=== PATIENT | female | born 1950 | race Caucasian/White ===

== ENCOUNTER → 2020-07-25 10:13 | Outpatient (CLI) | payer MEDICARE, SELFPAY ==
--- NOTE | ~2020-07-25 | XR_ITS ---
XR hip BI wo pelvis DATE: 07/25/2020 10:31 INDICATION: Bilateral hip pain TECHNIQUE: AP and lateral views of each hip COMPARISON: None FINDINGS: Bilateral hip joint space narrowing and spurring consistent with moderately severe bilatera l hip osteoarthritis. No fracture or dislocation, avascular necrosis or bone destruction is evident. The pubic symphysis and sacroiliac joints are intact. IMPRESSION: Moderately severe bilateral hip osteoarthritis Reviewed, dictated and finalized at location B.
== END ==
PROVIDERS: PCP Family Medicine; Visit Provider Family Medicine
DX: M25.552 Pain in left hip (principal); M25.551 Pain in right hip; M16.0 Bilateral primary osteoarthritis of hip
CPT/HCPCS: 73521

== ENCOUNTER 2020-08-16 12:18 | Outpatient (CLI) | payer MEDICARE, SELFPAY ==
--- NOTE | ~2020-08-16 | CT_ITS ---
EXAMINATION: CT abdomen pelvis w con DATE: 08/16/2020 12:47 INDICATION: Left lower quadrant abdominal pain. Diverticulosis. TECHNIQUE: Computed tomography (CT) of the abdomen and pelvis was performed with 100 mL Omnipaque 350 intravenous contrast. Automated exposure control and iterative reconstruction technique were employe d. The dose-length product was 830.19 mGy-cm. COMPARISON: None. FINDINGS: The visualized portions of the lung bases demonstrate mild atelectasis in the left. No pleu ral effusion. The heart size is normal. No pericardial effusion. There is a small sliding hiatal andrei ia. There are cysts in the liver measuring up to 1.2 cm. The gallbladder, spleen, pancreas, adrenal g lands, and left kidney are normal. There is a 5 mm cyst in right kidney. There are scattered divertic kathleen in the colon. There is mild fat stranding adjacent to a sigmoid diverticulum, consistent with div erticulitis. The appendix is normal. There are no dilated loops of bowel. There are no pathologically enlarged lymph nodes. There is no free intraperitoneal fluid. There is a right inguinal hernia conta ining fat. There is severe osteoarthritis of the hips. There is moderate lumbar spondylosis. IMPRESSION: 1. Mild sigmoid diverticulitis. No perforation or abscess. Reviewed, dictated and finalized at location A.
[2020-08-16 12:42] LABS: Estimated Glomerular Filt Rate > 60
== END 2020-08-16 12:19 | disposition home or self-care (01) ==
PROVIDERS: PCP Family Medicine; Visit Provider Physician Assistant
DX: R10.32 Left lower quadrant pain (principal); K57.32 Diverticulitis of large intestine without perforation or abscess without bleeding
CPT/HCPCS: 74177; Q9967

== ENCOUNTER 2021-05-25 10:53 | Outpatient (CLI) | payer MEDICARE, SELFPAY ==
--- NOTE | 2021-05-25 | ECG_ITS ---
Measurements Intervals [place] Rate: 83 P: 0 [place]: 188 QRS: -32 QRSD: 88 T: 32 QT: 376 QTc: 443 Interpretive Statements SINUS RHYTHM LEFT AXIS DEVIATION CANNOT RULE OUT SEPTAL INFARCT, AGE INDETERMINATE ABNORMAL ECG Electronically Signed On 05-25-2021 11:37:16 CDT by Ozzy Bledsoe D.O.
[2021-05-25 11:33] LABS: Hematocrit 41.2 % (37.0-47.0); Hemoglobin 13.4 g/dL (12.0-15.0)
[2021-05-25 11:44] LABS: Estimated Glomerular Filt Rate > 60; Glucose 129 mg/dL (65-110)
[2021-05-25 11:51] LABS: Urine Cotinine NEGATIVE
== END 2021-05-25 10:54 | disposition home or self-care (01) ==
LOC: ANHLAB 10:55
PROVIDERS: PCP Family Medicine; Visit Provider Orthopaedic Surgery
DX: Z01.818 Encounter for other preprocedural examination (principal); E78.00 Pure hypercholesterolemia, unspecified; I10 Essential (primary) hypertension; I25.5 Ischemic cardiomyopathy; Z51.81 Encounter for therapeutic drug level monitoring; Z79.899 Other long term (current) drug therapy
CPT/HCPCS: 80307; 82040; 82565; 82947; 85014; 85018; 93005

== ENCOUNTER 2021-06-11 11:34 | Outpatient (CLI) | payer MEDICARE, SELFPAY ==
[2021-06-11 13:27] LABS: Basophils Percent Auto 0.4 % (0.2-1.2); Eosinophils Absolute Auto 0.2 K/mm3 (0-0.3); Eosinophils Percent Auto 1.9 % (0-4.4); Hematocrit 44.5 % (37.0-47.0); Hemoglobin 14.8 g/dL (12.0-15.0); Immature Granulocyte Absolute 0.04 K/mm3 (0.00-0.031); Immature Granulocyte Percent A 0.4 % (0-0.5); Lymphocytes Absolute Auto 2.53 K/mm3 (0.9-3.2); Lymphocytes Percent Auto 27.3 % (18.3-44.2); Mean Corpuscular HGB Conc 33.3 g/dl (32-36); Mean Corpuscular Hemoglobin 29.4 pg (26-34); Mean Corpuscular Volume 88.3 fl (80-100); Mean Platelet Volume 10.5 fl (7.4-10.4); Monocytes Absolute Auto 0.6 K/mm3 (0.1-0.6); Monocytes Percent Auto 6.4 % (2.6-8.5); Neutrophils Absolute Auto 5.9 K/mm3 (1.3-6.7); Neutrophils Percent Auto 63.6 % (45.5-73.1); Platelet Count Result 351 k/mm3 (150-375); Red Blood Count 5.04 M/mm3 (4.2-5.4); Red Cell Distribution Width 13.6 % (11.5-14.5); White Blood Count 9.3 K/mm3 (4.5-10.0)
[2021-06-11 13:42] LABS: Anion Gap 6 mmol/L (8-16); Blood Urea Nitrogen 17 mg/dL (7-17); Calcium 9.9 mg/dL (8.4-10.2); Carbon Dioxide 30 mmol/L (22-30); Chloride 100 mmol/L (98-107); Estimated Glomerular Filt Rate > 60; Glucose 123 mg/dL (65-110); Sodium 136 mmol/L (137-145)
[2021-06-11 18:03] LABS: Hemoglobin A1C 6.6 % (<5.7)
== END 2021-06-11 11:35 | disposition home or self-care (01) ==
PROVIDERS: Anesthesiology; PCP Family Medicine; Visit Provider Orthopaedic Surgery
DX: Z01.818 Encounter for other preprocedural examination (principal); M16.12 Unilateral primary osteoarthritis, left hip; I10 Essential (primary) hypertension
CPT/HCPCS: 36415; 80048; 83036; 85025; 87081

== ENCOUNTER 2021-06-18 13:21 | Outpatient (CLI) | payer MEDICARE, SELFPAY | END 2021-06-18 13:22 | disposition home or self-care (01) | LOC: ANHSURGERY 13:23 | PROVIDERS: PCP Family Medicine; Visit Provider Orthopaedic Surgery | DX: M16.12 Unilateral primary osteoarthritis, left hip (principal); Z01.818 Encounter for other preprocedural examination | CPT/HCPCS: 36415; 86850; 86900; 86901 ==

== ENCOUNTER 2021-09-17 09:37 | Outpatient (CLI) | payer MEDICARE, SELFPAY ==
[2021-09-17 10:10] LABS: Basophils Percent Auto 0.5 % (0.2-1.2); Eosinophils Absolute Auto 0.3 K/mm3 (0-0.3); Eosinophils Percent Auto 2.9 % (0-4.4); Hematocrit 40.9 % (37.0-47.0); Hemoglobin 13.7 g/dL (12.0-15.0); Immature Granulocyte Absolute 0.04 K/mm3 (0.00-0.031); Immature Granulocyte Percent A 0.5 % (0-0.5); Lymphocytes Absolute Auto 2.12 K/mm3 (0.9-3.2); Lymphocytes Percent Auto 24.3 % (18.3-44.2); Mean Corpuscular HGB Conc 33.5 g/dl (32-36); Mean Corpuscular Hemoglobin 30.2 pg (26-34); Mean Corpuscular Volume 90.3 fl (80-100); Mean Platelet Volume 10.8 fl (7.4-10.4); Monocytes Absolute Auto 0.7 K/mm3 (0.1-0.6); Monocytes Percent Auto 8.2 % (2.6-8.5); Neutrophils Absolute Auto 5.6 K/mm3 (1.3-6.7); Neutrophils Percent Auto 63.6 % (45.5-73.1); Platelet Count Result 322 k/mm3 (150-375); Red Blood Count 4.53 M/mm3 (4.2-5.4); White Blood Count 8.7 K/mm3 (4.5-10.0)
[2021-09-17 10:13] LABS: Albumin Level 4.4 g/dL (3.5-5.1)
[2021-09-17 10:16] LABS: Anion Gap 6 mmol/L (8-16); Blood Urea Nitrogen 21 mg/dL (7-17); Calcium 9.3 mg/dL (8.4-10.2); Carbon Dioxide 31 mmol/L (22-30); Chloride 98 mmol/L (98-107); Estimated Glomerular Filt Rate > 60; Glucose 148 mg/dL (65-110); Sodium 135 mmol/L (137-145)
[2021-09-17 10:23] LABS: Urine Cotinine NEGATIVE
[2021-09-17 10:56] LABS: Hemoglobin A1C 6.3 % (<5.7)
== END 2021-09-17 09:38 | disposition home or self-care (01) ==
LOC: ANHSURGERY 09:42
PROVIDERS: Anesthesiology; PCP Family Medicine; Visit Provider Orthopaedic Surgery
DX: Z01.812 Encounter for preprocedural laboratory examination (principal); M16.12 Unilateral primary osteoarthritis, left hip; Z51.81 Encounter for therapeutic drug level monitoring; Z79.899 Other long term (current) drug therapy
CPT/HCPCS: 36415; 80048; 80307; 82040; 83036; 85025; 86850; 86900; 86901; 87081

== ENCOUNTER 2021-09-25 00:08 | Day surgery (SDC) | payer MEDICARE, SELFPAY ==
[2021-06-11 12:04] VITALS: BMI 34.3
[2021-06-11 13:16] VITALS: BP 137/69; PULSE 72; RESP 16; TEMP 36.9; O2SAT 98
[2021-09-11 15:33] VITALS: BMI 33.7
--- NOTE | 2021-09-11 15:53 | PC.NURSE ---
Report to the Outpatient Waiting Room, entrance under the green pavilion located off [facility], at time ___6:00AM____ on date __09/25/21 . OR Time: __7:30AM . - You and your visitor will be asked a series of questions to screen for COVID 19 for your protection. - A mask is required within the hospital. - Only one visitor is allowed at this time. Patient visitors will be guided where to wait when not with patient. Preoperative COVID Testing Requirements: No COVID Test needed if: (proof is required; if not received patient will have Rapid Test prior to entry) - Patient has received COVID Vaccine at least 14 days prior to procedure date or - Patient has positive COVID test result within last 90 days of surgery date. COVID Test needed if above criteria is not met If not COVID vaccinated a COVID test must be conducted within 72 hours of surgery and patient is asked to isolate self from time of testing until procedure. You will go to the [facility] for your COVID testing. The [facility] site is located at the corner of [address] [facility]. You will only be called if COVID results are positive and your surgeon may reschedule your elective surgery date. Patients may have clear liquids (water, carbonated beverages, clear teas, apple juice) until 3 hours prior to surgery with a maximum of 20 ounces. - No food from midnight until time of surgery - Infants may have breast milk until 4 hours before surgery, infant formula 6 hours prior to surgery. - Children will be allowed to drink immediately following surgery. If applicable, please bring a bottle or sippy cup to assist with drinking. Juice, water, soda, and popsicles are readily available. For infants on formula, please bring formula the day of surgery. Pacifiers are allowed. Take the following medications with a SIP of water the morning of surgery: ____AMLODIPINE Medications to discontinue per physician ____HOLD MELOXICAM & ASPIRIN 7 DAYS PRE-OP, ALL VITAMINS/SUPPLEMENTS 5 DAYS PRE-OP PER DR VALLEJO Date to take last dose____ABOVE Please no make-up, nail vietnamese, hairspray, perfume, deodorant, or body powder the day of surgery. No jewelry (including any body piercings) or valuables the day of surgery, leave them at home. Please take a shower or bath the night before, or the morning of, surgery with an antibacterial soap. Wear comfortable, loose fitting clothing. Children are encouraged to wear pajamas. - Jewelry must be removed prior to entering the operating room. Rings and piercings that are not removed may be cut off. - The hospital will not accept responsibility for valuables. - Please leave all valuables, including medications, at home the day of surgery. If you are going home after surgery, a licensed corporate driver must drive you home. - NO public transportation without another adult. - We recommend that an adult stay with you for 24 hours following discharge. - We also recommend that you do not drive, make important decision, drink alcoholic beverages, or take any drugs that were not prescribed by your health care provider for at least 24 hours after your discharge time. For Pediatric surgeries, we recommend two adults accompany the child home (only one inside the building at this time). Follow any additional instructions given to you from your surgeon. Telephone instructions given to __PATIENT and asked if any additional questions and then verbalized understanding. Patient advised to call surgeon office or pre surgery nurse liaison [phone] if any additional questions.
--- NOTE | 2021-09-24 13:07 | WPDANESEPPF ---
Anes - Initial Pre Proc Eval Procedure: Operation Date: 09/25/21 07:30 Proposed Procedures p Left Total Hip Arthroplasty - Michael Castro MD Date/Time: 09/24/21 13:07 Surgeon: Michael Castro MD Pre Op Diagnosis: primary OA left hip Patient Data Age: 71 Gender: F Height: 1.65 m Weight: 92 kg Last Vital Signs Temp 36.9 C 06/11/21 13:16 Pulse 72 06/11/21 13:16 Resp 16 06/11/21 13:16 BP 137/69 06/11/21 13:16 Pulse Ox 98 06/11/21 13:16 Allergies Allergy/AdvReac Type Severity Reaction Status Date / Time amoxicillin Allergy Mild Rash Verified 09/25/21 05:58 Penicillins Allergy Mild Rash Verified 09/25/21 05:58 MICAELA Inhibitors AdvReac Unknown Cough Verified 09/25/21 05:58 Home Medications Medication Instructions Recorded Confirmed Type aspirin 81 mg tablet,delayed 81 mg PO HS 07/25/20 09/25/21 History release multivitamin 1 tablet PO DAILY 07/25/20 09/25/21 History amlodipine 5 mg PO QAM 09/11/21 09/25/21 History hydrochlorothiazide 25 mg PO QAM 09/11/21 09/25/21 History meloxicam [Mobic] 15 mg PO QAM 09/11/21 09/25/21 History valsartan 160 mg PO QAM 09/11/21 09/25/21 History Patient hx anesthesia problems: none Family hx anesthesia problems: none Results Review: All pre-operative results and documents have been reviewed as part of the pre-operative evaluation. [facility] Past Medical History Medical History Bilateral hip joint arthritis Essential (primary) hypertension IFG (impaired fasting glucose) Osteoporosis Pure hypercholesterolemia Surgical History Surgical History History of hysterectomy with bilateral oophorectomy History of tonsillectomy and adenoidectomy Family History Family History Mother Hypertension Father Arthritis Social History Social History (Reviewed 09/05/21 @ 12:06 by NERGO Smart Social History: Smoking status: Never smoker Second hand tobacco smoke exposure: No Additional smoking assessment comments: DENIES ANY FORM OF TOBACCO USE Alcohol intake: current Drinks per week: 1 Substance use: never Substance use type: does not use Living arrangements: with family Additional living arrangements comments: HUSB AND SON Gender identity (if verbalized by the patient): Female Sexual Orientation (if Verbalized by the Patient): Straight or Heterosexual Spiritual care concerns: No Anes - Eval Final PreProcedure Day of Procedure 09/24/21 13:07 Patient weight: obese Heart: regular rate and rhythm Lungs: clear to auscultation and normal air movement Airway: Mallampati scale class III Neurological: alert and oriented Last oral intake: >/= 8 hours ASA classification: III Emergent: no Anesthetic plan: proceed Anesthesia type and monitoring: general ETT and standard monitoring Results Review: All pre-operative results and documents have been reviewed as part of the pre-operative evaluation. Informed Consent: The patient's anesthetic plan and its attendant risks and benefits were discussed with the patient/family/POA. Questions were solicited and answers provided to the satisfaction of the patient/family/POA.
[2021-09-25] VITALS (21 sets, daily range): BP systolic 93–143; BP diastolic 48–91; PULSE 59–98; RESP 11–24; TEMP 36.2–36.9; O2SAT 97–100; BMI 37.4
--- NOTE | ~2021-09-25 | XR_ITS ---
EXAMINATION: XR hip LT min 2V DATE: 09/25/2021 10:14 INDICATION: Left hip arthroplasty TECHNIQUE: 2 views left hip FINDINGS: There is a left total hip arthroplasty in expected position. Subcutaneous gas with soft ti ssue swelling are consistent with recent surgery. IMPRESSION: 1. Recent left total hip arthroplasty. Reviewed, dictated and finalized at location B. GER R D
[2021-09-25] MEDS: ACETAMINOPHEN 500 MG TABLET 1000 MG PO ×3 (06:41→20:21)
[2021-09-25] MEDS: LACTATED RINGERS 1,000 ML 30 ML IV CONT ×2 (06:41→09:58)
[2021-09-25] MEDS: TRANEXAMIC ACID 1,000MG/ISO100 1,000 MG/100 ML BAG 200 MG IVPB (06:58)
--- NOTE | 2021-09-25 07:25 | WPDHPUPDATE1 ---
History and Physical Update Update Date/Time: 09/25/21 07:25 History and Physical has been reviewed, including an updated exam of the patient. There are NO changes in the patient's condition. Risks, benefits, and alternatives have been discussed and questions answered. Patient agrees to proceed with procedure.
[2021-09-25] MEDS: ceFAZolin 2 GM/D5W 50 ML 2 GM/50 ML BAG IVPB ×3 (07:30→22:06)
--- NOTE | 2021-09-25 09:52 | P.OP_ITS ---
Procedure Note - Detailed Date of Procedure 09/25/21 Pre-op Diagnosis primary OA left hip Post-op Diagnosis same Procedure Performed Left Total Hip Arthroplasty Surgeon Michael Castro MD Anesthesia general Description of Procedure The patient was given preoperative antibiotics. A general anesthetic was admi nistered. The patient was carefully placed in the lateral decubitus position on the PEG board. The shoulders and hips were carefully positioned for component and leg length positioning reference. The hip was prepped and draped in the usual sterile fashion. A longitudinal incision was created over the posterior aspect of the greater trochanter. Careful dissection was brought down through the deep fascia with electrocautery. A minimally invasive optimized posterior approach to the hip was performed. The short external rotators and capsule were taken down in an L-shaped capsulotomy. The tissue was tagged for later repair using number 2 high strength suture. The femoral neck was measured and taken in situ. The femoral head was removed. The acetabulum was carefully exposed. The inferior capsule was released. The labrum was resected. The acetabulum was sequentially reamed to the intended cup size. The cup was impacted into position with excellent press-fit. Typical anatomic landmarks, including the bony contact points as well as the inferior transverse acetabular ligament were used to confirm cup positioning with preoperative templating. Attention was turned to the femur, which was carefully exposed. The hip was reamed and then broached sequentially. Excellent press-fit was obtained with the broach. The hip was trialed. Measurements were utilized, including the lesser trochanter as well as the center of the femoral head and the tip of the trochanter, and excellent assessment of the offset and leg lengths were confirmed. The real component was impacted into position. Trialing confirmed appropriate leg length and offset with soft tissue balancing as well apparent feel of the leg, both at the knee and the heel. Soft tissues were assessed using the the iliotibial band. Reduction of the posterior capsule and external rotators were also used as a secondary assessment. The hip was copiously irrigated with pulsatile lavage antibiotic solution periodically throughout the procedure. The real components were then assembled and reduced. The hip was stable throughout typical maneuvers, including extension, external rotation to 70 degrees, the position of sleep as well as flexion to 90 degrees with internal rotation past 45 degrees. The shake test confirmed stability without impingement. Osteophytes were removed as necessary. The short external rotators and capsule were repaired back to the posterior trochanter through drill holes. The deep fascia was repaired with running number 2 Quill suture, followed by 0 Stratafix suture and 2-0 Stratafix suture in the dermis. Steri-Strips were placed on the skin, followed by a sterile silver occlusive dressing. There were no complications. Meticulous hemostasis was maintained with the AquaMantys device. The patient was brought to the recovery room in stable condition. There were no complications. Implants The Accolade II hip stem, 127 degree size 4 , was utilized with excellent press-fit. The 48 mm Trident II acetabular component was impacted with excellent press-fit stability. The -2.5 , 36 mm Biolox ceramic femoral head was utilized. Estimated Blood Loss 200 Drains No Packing No Pathology none sent Complications No immediate complications Condition stable Disposition PACU
--- NOTE | 2021-09-25 10:35 | SUR.PHASEI ---
1006 xrays of left hip done,
--- NOTE | 2021-09-25 11:15 | SUR.PHASEI ---
called dr castaneda about pt unarousable,pt stated preop that she was hard to wake up from anesthesia.
[2021-09-25] MEDS: fentaNYL CITRATE INJ (*CRX) 100 MCG/2 ML VIAL 25 MCG IV PUSH ×3 (11:37→12:59)
--- NOTE | 2021-09-25 12:39 | SUR.PHASEI ---
1230 transferred pt on stretcher to op recovery. pt stable with o2 2l.
--- NOTE | 2021-09-25 14:12 | SUR.PHASEI ---
1315 - PT at bedside working with pt. pt's in room 1345 - pt eating lunch tray. pt denies pain when asked
--- NOTE | 2021-09-25 14:38 | ADMGEN ---
This patient, Kade Ramos, was admitted to 2 Medical Room 253-01. Patient/family oriented to hospital policies and general routines including ID bracelet, bed and alarms, visiting hours, pain management, procedures, bathroom and other care routines, personal items, smoking policy, room service/diet, and visiting hours. Information on how to activate the Rapid Response Team has been discussed. Patient/Family are encouraged to report perceived risks to care and to ask questions if they do not understand what they are told or what they should do.
[2021-09-25] MEDS: SENNA/DOCUSATE SODIUM TABLET 2 TAB PO (17:28)
[2021-09-25] MEDS: ASPIRIN 81 MG ENTERIC TABLET PO (20:21)
[2021-09-25] MEDS: CYCLOBENZAPRINE HCL 10 MG TABLET PO (23:56)
[2021-09-25] MEDS: oxyCODONE HCL (*CRX) 5 MG TAB IR PO (23:57)
[2021-09-26 00:13] VITALS: BP 126/62; PULSE 85; RESP 18; TEMP 36.1; O2SAT 97
[2021-09-26 04:13] VITALS: BP 137/53; PULSE 94; RESP 16; TEMP 36.3; O2SAT 97
[2021-09-26 05:41] VITALS: BP 137/53; PULSE 94; RESP 16; TEMP 36.3; O2SAT 97
[2021-09-26] MEDS: ceFAZolin 2 GM/D5W 50 ML 2 GM/50 ML BAG IVPB (06:01)
[2021-09-26] MEDS: oxyCODONE HCL (*CRX) 5 MG TAB IR PO (06:01)
[2021-09-26 06:02] LABS: Anion Gap 5 mmol/L (8-16); Blood Urea Nitrogen 21 mg/dL (7-17); Calcium 8.3 mg/dL (8.4-10.2); Carbon Dioxide 26 mmol/L (22-30); Chloride 101 mmol/L (98-107); Estimated CRCL calculation 68 ml/min; Estimated Glomerular Filt Rate > 60; Glucose 191 mg/dL (65-110); Potassium 4.3 mmol/L (3.4-5.0); Sodium 132 mmol/L (137-145)
[2021-09-26 06:17] LABS: Basophils Percent Auto 0.2 % (0.2-1.2); Eosinophils Percent Auto 0.1 % (0-4.4); Hematocrit 37.3 % (37.0-47.0); Hemoglobin 12.3 g/dL (12.0-15.0); Immature Granulocyte Absolute 0.12 K/mm3 (0.00-0.031); Immature Granulocyte Percent A 0.7 % (0-0.5); Immature Platelet Fraction Pct 6.6 % (0.9-11.2); Lymphocytes Absolute Auto 1.64 K/mm3 (0.9-3.2); Lymphocytes Percent Auto 9.8 % (18.3-44.2); Mean Corpuscular Hemoglobin 30.3 pg (26-34); Mean Corpuscular Volume 91.9 fl (80-100); Mean Platelet Volume 11.6 fl (7.4-10.4); Monocytes Absolute Auto 1.3 K/mm3 (0.1-0.6); Monocytes Percent Auto 7.4 % (2.6-8.5); Neutrophils Absolute Auto 13.7 K/mm3 (1.3-6.7); Neutrophils Percent Auto 81.8 % (45.5-73.1); Platelet Count Result 256 k/mm3 (150-375); Red Blood Count 4.06 M/mm3 (4.2-5.4); Red Cell Distribution Width 13.9 % (11.5-14.5); White Blood Count 16.8 K/mm3 (4.5-10.0)
[2021-09-26] MEDS: MULTIVITAMINS THERAPEUTIC TAB (*BKC) 1 TABLET PO (08:23)
[2021-09-26] MEDS: SENNA/DOCUSATE SODIUM TABLET 2 TAB PO (08:23)
[2021-09-26] MEDS: ACETAMINOPHEN 500 MG TABLET 1000 MG PO (08:23)
[2021-09-26] MEDS: amLODIPine BESYLATE 5 MG TABLET PO (08:23)
[2021-09-26] MEDS: VALSARTAN 160 MG TABLET PO (08:23)
[2021-09-26] MEDS: hydroCHLOROthiazide 25 MG TABLET PO (08:23)
[2021-09-26] MEDS: polyethylene glycoL 3350 17 GM POWD.PACK PO (08:23)
--- NOTE | 2021-09-26 08:38 | PM.DS ---
DS: Admitting Diagnosis Discharge Date 09/26/21 Admitting Diagnosis OA Left hip DS: Discharge Diagnosis Discharge Diagnosis (1) Status post total hip replacement, left: Code(s): Z96.642 - Presence of left artificial hip joint Status: Acute Assessment and Plan: Postop day 1: Total hip arthroplasty, left. Patient tolerated procedure well. No complications. Pain manageable with pain medication. No numbness or tingling. We had a lengthy discussion regarding postoperative wound care, limitations, expectations, and exercises. Patient shows good understanding. Patient has had initial physical therapy and is tolerating it well. DVT prophylaxis: 81 mg baby aspirin b.i.d. for 14 days. Short frequent walks. Compression socks for 3 weeks. Pain medication: Percocet. Meloxicam. Patient has followup appointment with Dr. Castro in 3 weeks DS: Summary Hospital Course Reason for hospitalization: Total hip arthroplasty Hospital Course: Patient tolerated procedure well. Has had initial PT/OT. Status at Discharge Functional status at discharge: uses cane/walker Overall status at discharge: patient is progressing back to baseline Time Spent with Patient Time attestation: Total time spent providing and/or coordinating discharge services: Exam Narrative: Overweight 71 yo female. Resting comfortably in bed. Wearing compression socks bilaterally. Dressing dry and intact with no drainage. Moderate swelling. No ecchymosis. No erythema. No hematoma. Range of motion limited due to pain. Calf nontender. Thigh nontender. Neurologic status intact. No varicosities. Distal pulses palpable. DS: Data Data Completed and Pending Labs on day of discharge: Labs from last 24 hours 09/26/21 09/26/21 05:20 05:20 WBC 16.8 H RBC 4.06 L Hgb 12.3 Hct 37.3 MCV 91.9 MCH 30.3 MCHC 33.0 RDW 13.9 Plt Count 256 MPV 11.6 H Immature Gran % (Auto) 0.7 H Neut % (Auto) 81.8 H Lymph % (Auto) 9.8 L [place] % (Auto) 7.4 Eos % (Auto) 0.1 Baso % (Auto) 0.2 Lymph # (Auto) 1.64 [place] # (Auto) 1.3 H Eos # (Auto) 0.0 Baso # (Auto) 0.0 Abs Immat Gran (auto) 0.12 H Absolute Neuts (auto) 13.7 H Absolute Nucleated RBC 0.0 Nucleated RBC % 0.0 % Immature Plt Fraction 6.6 Sodium 132 L Potassium 4.3 Chloride 101 Carbon Dioxide 26 Anion Gap 5 L BUN 21 H Creatinine 0.80 Estim Creat Clear Calc 68 Estimated GFR > 60 Glucose 191 H Calcium 8.3 L Discharge Plan Discharge Patient Disposition: Home, Self-Care Discharge Instructions: See green instruction sheet Stand Alone Forms: General Discharge Instructions Follow-up/Referrals: Jen Yao PA [Physician Trial Judge] - Discharge Medications: New aspirin 81 mg tablet,delayed release (DR/EC) 81 mg PO BID 14 Days Qty: 28 RF: 0 oxycodone-acetaminophen 5-325 mg tablet 1 - 2 tablet PO Q4-6H MDD 6 PRN (Reason: pain) Qty: 30 RF: 0 Continued multivitamin Tablet 1 tablet PO DAILY RF: 0 meloxicam [Mobic] 15 mg tablet 15 mg PO QAM RF: 0 amlodipine 5 mg tablet 5 mg PO QAM RF: 0 hydrochlorothiazide 25 mg tablet 25 mg PO QAM RF: 0 valsartan 160 mg tablet 160 mg PO QAM RF: 0 Held aspirin 81 mg tablet,delayed release (DR/EC) 81 mg PO HS RF: 0 Hold Instructions: Resume on 10/10/21. Take twice a day for 2 weeks then resume one a day dose
[2021-09-26] MEDS: MELOXICAM 7.5 MG TABLET 15 MG PO (09:05)
[2021-09-26 10:00] VITALS: BP 119/55; PULSE 92; RESP 16; TEMP 36.3; O2SAT 96
== END 2021-09-26 11:24 | disposition home or self-care (01) ==
LOC: ANHSURGERY 05:47 → ANH2MED 14:30
PROVIDERS: PCP Family Medicine; Visit Provider Orthopaedic Surgery
PROC: (CPT 27130; principal; 2021-09-25 07:30)
DX: M16.12 Unilateral primary osteoarthritis, left hip (principal); I10 Essential (primary) hypertension; E78.00 Pure hypercholesterolemia, unspecified; M81.0 Age-related osteoporosis without current pathological fracture; Z79.82 Long term (current) use of aspirin; E66.9 Obesity, unspecified; Z68.37 Body mass index [BMI] 37.0-37.9, adult
CPT/HCPCS: 27130; 36415; 73502; 80048; 85025; 85055; 97110; 97116; 97161; 97165; 97530; 97535; A9270; C1776; J0171; J0690; J1100; J1170; J1885; J2250; J2270; J2405; J2704; J2710; J2795; J3010; J7120

== ENCOUNTER 2022-02-20 07:54 | Outpatient (CLI) | payer MEDICARE, SELFPAY ==
--- NOTE | ~2022-02-20 | MM_ITS ---
EXAMINATION: MM screening [facility] BI w [facility] HISTORY: Screening TECHNIQUE: Craniocaudal and mediolateral oblique 3-D tomosynthesis images were obtained and synthetic 2-D images were generated. CAD analysis was submitted and interpreted. COMPARISON: Comparison to multiple prior studies sequentially, with oldest reviewed study dated 05/2013. BREAST PARENCHYMAL COMPOSITION: Breast composed of scattered areas of fibroglandular density FINDINGS: There is no evidence of suspicious mass, calcification, or architectural distortion to sugg est malignancy in either breast. There has been no suspicious interval change. IMPRESSION: 1. No mammographic evidence of malignancy. 2. Recommend routine screening mammography in one year. BI-RADS Category 1: Negative Reviewed, dictated and finalized at location A.
== END 2022-02-20 07:55 | disposition home or self-care (01) ==
LOC: ANHIMG 07:55
PROVIDERS: PCP Family Medicine; Visit Provider Family Medicine
DX: Z12.31 Encounter for screening mammogram for malignant neoplasm of breast (principal)
CPT/HCPCS: 77063; 77067

== ENCOUNTER 2022-04-22 09:54 | Outpatient (CLI) | payer MEDICARE, SELFPAY ==
--- NOTE | 2022-04-22 10:55 | ECG_ITS ---
Measurements Intervals [place] Rate: 80 P: 78 [place]: 207 QRS: -36 QRSD: 87 T: 11 QT: 401 QTc: 464 Interpretive Statements SINUS RHYTHM MARKED LEFT AXIS DEVIATION [QRS AXIS < -30] POOR R-WAVE PROGRESSION COMPARED TO ECG 05/25/2021 11:36:16 NO SIGNIFICANT CHANGES Electronically Signed On 04-22-2022 15:51:09 CDT by Michael Britt M.D.
[2022-04-22 11:18] LABS: Basophils Absolute Auto 0.1 K/mm3 (0.0-0.1); Basophils Percent Auto 0.6 % (0.2-1.2); Eosinophils Absolute Auto 0.2 K/mm3 (0-0.3); Eosinophils Percent Auto 1.8 % (0-4.4); Hematocrit 42.4 % (37.0-47.0); Hemoglobin 13.8 g/dL (12.0-15.0); Immature Granulocyte Absolute 0.03 K/mm3 (0.00-0.031); Immature Granulocyte Percent A 0.4 % (0-0.5); Lymphocytes Absolute Auto 2.19 K/mm3 (0.9-3.2); Lymphocytes Percent Auto 26.8 % (18.3-44.2); Mean Corpuscular HGB Conc 32.5 g/dl (32-36); Mean Corpuscular Hemoglobin 29.5 pg (26-34); Mean Corpuscular Volume 90.6 fl (80-100); Mean Platelet Volume 10.4 fl (7.4-10.4); Monocytes Absolute Auto 0.7 K/mm3 (0.1-0.6); Neutrophils Absolute Auto 5.1 K/mm3 (1.3-6.7); Neutrophils Percent Auto 62.4 % (45.5-73.1); Platelet Count Result 354 k/mm3 (150-375); Red Blood Count 4.68 M/mm3 (4.2-5.4); Red Cell Distribution Width 14.7 % (11.5-14.5); White Blood Count 8.2 K/mm3 (4.5-10.0)
[2022-04-22 11:29] LABS: Urine Cotinine NEGATIVE
[2022-04-22 11:32] LABS: Albumin Level 4.3 g/dL (3.5-5.1)
[2022-04-22 11:35] LABS: Anion Gap 9 mmol/L (8-16); Blood Urea Nitrogen 16 mg/dL (7-17); Carbon Dioxide 30 mmol/L (22-30); Chloride 100 mmol/L (98-107); Estimated Glomerular Filt Rate > 60; Glucose 122 mg/dL (65-110); Potassium 3.7 mmol/L (3.4-5.0); Sodium 139 mmol/L (137-145)
[2022-04-22 12:26] LABS: Hemoglobin A1C 6.1 % (<5.7)
== END 2022-04-22 09:55 | disposition home or self-care (01) ==
LOC: ANHSURGERY 10:00
PROVIDERS: Anesthesiology; PCP Family Medicine; Visit Provider Orthopaedic Surgery
DX: M16.11 Unilateral primary osteoarthritis, right hip (principal); Z01.818 Encounter for other preprocedural examination
CPT/HCPCS: 36415; 80048; 80307; 82040; 83036; 85025; 87081; 93005

== ENCOUNTER 2022-05-21 00:10 | Day surgery (SDC) | payer MEDICARE, SELFPAY ==
[2022-04-22 10:06] VITALS: BMI 32.7
--- NOTE | 2022-04-22 10:32 | PC.NURSE ---
Report to the Outpatient Waiting Room, entrance under the green pavilion located off [facility], at time __0600 on date _05/21/22 . OR Time: __729 . - You and your visitor will be asked a series of questions to screen for COVID 19 for your protection. - Only one visitor is allowed at this time. - The patient visitor is requested to leave or wait in car when not with patient. - A mask is required within the hospital. Patients may have clear liquids (water, carbonated beverages, clear teas, apple juice) until 3 hours prior to surgery with a maximum of 20 ounces. - No food from midnight until time of surgery - Infants may have breast milk until 4 hours before surgery, infant formula 6 hours prior to surgery. - Children will be allowed to drink immediately following surgery. If applicable, please bring a bottle or sippy cup to assist with drinking. Juice, water, soda, and popsicles are readily available. For infants on formula, please bring formula the day of surgery. Pacifiers are allowed. Take the following medications with a SIP of water the morning of surgery: _AMLODIPINE Medications to discontinue per physician ASPIRIN 7 DAYS PRE OP,MULTIVITAMIN 3 DAYS PRE OP Date to take last dose__ASPIRIN 05/13/22, VITAMIN 05/17/22 Please no make-up, nail ecuadorean, hairspray, perfume, deodorant, or body powder the day of surgery. No jewelry (including any body piercings) or valuables the day of surgery, leave them at home. Please take a shower or bath the night before, or the morning of, surgery with an antibacterial soap. Wear comfortable, loose fitting clothing. Children are encouraged to wear pajamas. - Jewelry must be removed prior to entering the operating room. Rings and piercings that are not removed may be cut off. - The hospital will not accept responsibility for valuables. - Please leave all valuables, including medications, at home the day of surgery. If you are going home after surgery, a licensed hazardous materials driver must drive you home. - NO public transportation without another adult. - We recommend that an adult stay with you for 24 hours following discharge. - We also recommend that you do not drive, make important decision, drink alcoholic beverages, or take any drugs that were not prescribed by your health care provider for at least 24 hours after your discharge time. For Pediatric surgeries, we recommend two adults accompany the child home (only one inside the building at this time). Follow any additional instructions given to you from your surgeon. If you or anyone in your household have experienced Covid symptoms in the past week, please notify your surgeon or the nurse liaison at the phone number below for possible testing. VERBAL AND WRITTEN instructions given to _PATIENT AND SPOUSE GARY and asked if any additional questions and then verbalized understanding. Patient advised to call surgeon office or pre surgery nurse liaison [phone] if any additional questions.
[2022-04-22 10:55] VITALS: BP 134/63; PULSE 77; RESP 18; TEMP 36.8; O2SAT 98
--- NOTE | 2022-05-20 13:57 | WPDANESEPPF ---
Anes - Initial Pre Proc Eval Procedure: Operation Date: 05/21/22 07:30 Proposed Procedures p Right Total Hip Arthroplasty - Michael Castro MD Date/Time: 05/20/22 13:57 Surgeon: Michael Castro MD Pre Op Diagnosis: primary OA right hip Patient Data Age: 72 Gender: F Height: 1.65 m Weight: 89.2 kg Last Vital Signs Temp 36.8 C 04/22/22 10:55 Pulse 77 04/22/22 10:55 Resp 18 04/22/22 10:55 BP 134/63 04/22/22 10:55 Pulse Ox 98 04/22/22 10:55 O2 Del Method Room Air 04/22/22 10:55 Allergies Allergy/AdvReac Type Severity Reaction Status Date / Time amoxicillin Allergy Mild Rash Verified 05/21/22 06:44 Penicillins Allergy Mild Rash Verified 05/21/22 06:44 MICAELA Inhibitors AdvReac Unknown Cough Verified 05/21/22 06:44 Home Medications Medication Instructions Recorded Confirmed Type aspirin 81 mg tablet,delayed 81 mg PO HS 07/25/20 05/21/22 History release multivitamin 1 tablet PO DAILY 07/25/20 05/21/22 History amlodipine 5 mg tablet 5 mg PO QAM 09/11/21 05/21/22 History valsartan 160 mg tablet 160 mg PO QAM 09/11/21 05/21/22 History hydrochlorothiazide 25 mg tablet 25 mg PO QAM #90 tabs 04/08/22 05/21/22 Rx Patient hx anesthesia problems: none Family hx anesthesia problems: none Results Review: All pre-operative results and documents have been reviewed as part of the pre-operative evaluation. FORMERLY [facility], [facility] Past Medical History Medical History (Updated 05/20/22 @ 13:58 by Miguel Angel Bryant MD) Bilateral hip joint arthritis Essential (primary) hypertension HLD (hyperlipidemia) IFG (impaired fasting glucose) IFG (impaired fasting glucose) Obesity Osteoporosis Pure hypercholesterolemia Surgical History Surgical History History of hysterectomy with bilateral oophorectomy History of tonsillectomy and adenoidectomy Family History Family History Mother Hypertension Father Arthritis Social History Social History Social History: Smoking status: Never smoker Second hand tobacco smoke exposure: No Additional smoking assessment comments: DENIES ANY FORM OF TOBACCO USE Alcohol intake: current Drinks per week: 2 Substance use: current Substance use type: does not use Living arrangements: with family Additional living arrangements comments: HUSB AND SON Gender identity (if verbalized by the patient): Female Sexual Orientation (if Verbalized by the Patient): Straight or Heterosexual Spiritual care concerns: No Anes - Eval Final PreProcedure Day of Procedure 05/20/22 13:57 Patient weight: obese Heart: regular rate and rhythm Lungs: clear to auscultation and normal air movement Airway: Mallampati scale class III Neurological: alert and oriented Last oral intake: >/= 8 hours ASA classification: III Emergent: no Anesthetic plan: proceed Anesthesia type and monitoring: general ETT and standard monitoring Results Review: All pre-operative results and documents have been reviewed as part of the pre-operative evaluation. Informed Consent: The patient's anesthetic plan and its attendant risks and benefits were discussed with the patient/family/POA. Questions were solicited and answers provided to the satisfaction of the patient/family/POA.
[2022-05-21] VITALS (16 sets, daily range): BP systolic 100–146; BP diastolic 46–62; PULSE 72–91; RESP 12–23; TEMP 35.7–36.7; O2SAT 93–100
--- NOTE | ~2022-05-21 | XR_ITS ---
EXAMINATION: XR hip RT min 2V DATE: 05/21/2022 10:15 INDICATION: Postoperative evaluation following right total hip arthroplasty TECHNIQUE: Anteroposterior and lateral views of the right hip were obtained. COMPARISON: 05/13/2022 FINDINGS: Interval placement of a noncemented right total hip arthroplasty which appears well seated in near an atomic alignment. The acetabular component is affixed with a single screw. Expected soft tissue gas i n the postoperative bed. No fractures identified. IMPRESSION: 1. Right total hip arthroplasty, negative for postoperative purposes. Reviewed, dictated and finalized at location A.
[2022-05-21] MEDS: ACETAMINOPHEN 500 MG TABLET 1000 MG PO (06:28)
[2022-05-21] MEDS: LACTATED RINGERS 1,000 ML 30 ML IV CONT ×2 (06:28→10:00)
[2022-05-21] MEDS: TRANEXAMIC ACID 1,000MG/ISO100 1,000 MG/100 ML BAG 200 MG IVPB (06:29)
--- NOTE | 2022-05-21 07:27 | WPDHPUPDATE1 ---
History and Physical Update Update Date/Time: 05/21/22 07:27 History and Physical has been reviewed, including an updated exam of the patient. There are NO changes in the patient's condition. Risks, benefits, and alternatives have been discussed and questions answered. Patient agrees to proceed with procedure.
[2022-05-21] MEDS: ceFAZolin 2 GM/D5W 50 ML 2 GM/50 ML BAG IVPB ×3 (07:44→23:30)
[2022-05-21] MEDS: fentaNYL CITRATE INJ (*CRX) 100 MCG/2 ML VIAL 25 MCG IV PUSH ×7 (10:17→11:05)
--- NOTE | 2022-05-21 10:49 | SUR.PHASEI ---
Simple mask removed at 1049.
--- NOTE | 2022-05-21 11:41 | ADMGEN ---
This patient, Kade Ramos, was admitted to Medical Room 245-. Patient/family oriented to hospital policies and general routines including ID bracelet, bed and alarms, visiting hours, pain management, procedures, bathroom and other care routines, personal items, smoking policy, room service/diet, and visiting hours. Information on how to activate the Rapid Response Team has been discussed. Patient/Family are encouraged to report perceived risks to care and to ask questions if they do not understand what they are told or what they should do.
[2022-05-21] MEDS: SODIUM CHLORIDE 0.9% IV 1,000 ML 125 ML IV CONT (11:54)
[2022-05-21] MEDS: oxyCODONE HCL (*CRX) 5 MG TAB IR 10 MG PO (11:54)
--- NOTE | 2022-05-21 15:05 | W.PM.PROC2 ---
Procedure Note - Detailed Date of Procedure 05/21/22 Pre-op Diagnosis primary OA right hip Post-op Diagnosis Same Procedure Performed Right Total Hip Arthroplasty Surgeon Michael Castro MD Fire Equipment Operator Jen Yao PA-C Anesthesia General Description of Procedure The patient was given preoperative antibiotics. A general anesthetic was administered. The patient was carefully placed in the lateral decubitus position on the PEG board. The shoulders and hips were carefully positioned for component and leg length positioning reference. The hip was prepped and draped in the usual sterile fashion. A longitudinal incision was created over the posterior aspect of the greater trochanter. Careful dissection was brought down through the deep fascia with electrocautery. A minimally invasive optimized posterior approach to the hip was performed. The short external rotators and capsule were taken down in an L-shaped capsulotomy. The tissue was tagged for later repair using number 2 high strength suture. The femoral neck was measured and taken in situ. The femoral head was removed. The acetabulum was carefully exposed. The inferior capsule was released. The labrum was resected. The acetabulum was sequentially reamed to the intended cup size. The cup was impacted into position with excellent press-fit. Typical anatomic landmarks, including the bony contact points as well as the inferior transverse acetabular ligament were used to confirm cup positioning with preoperative templating. Attention was turned to the femur, which was carefully exposed. The hip was reamed and then broached sequentially. Excellent press-fit was obtained with the broach. The hip was trialed. Measurements were utilized, including the lesser trochanter as well as the center of the femoral head and the tip of the trochanter, and excellent assessment of the offset and leg lengths were confirmed. The real component was impacted into position. Trialing confirmed appropriate leg length and offset with soft tissue balancing as well apparent feel of the leg, both at the knee and the heel. Soft tissues were assessed using the the iliotibial band. Reduction of the posterior capsule and external rotators were also used as a secondary assessment. The hip was copiously irrigated with pulsatile lavage antibiotic solution periodically throughout the procedure. The real components were then assembled and reduced. The hip was stable throughout typical maneuvers, including extension, external rotation to 70 degrees, the position of sleep as well as flexion to 90 degrees with internal rotation past 45 degrees. The shake test confirmed stability without impingement. Osteophytes were removed as necessary. The short external rotators and capsule were repaired back to the posterior trochanter through drill holes. The deep fascia was repaired with running number 2 Quill suture, followed by 0 Stratafix suture and 2-0 Stratafix suture in the dermis. Steri-Strips were placed on the skin, followed by a sterile silver occlusive dressing. There were no complications. Meticulous hemostasis was maintained with the AquaMantys device. The patient was brought to the recovery room in stable condition. There were no complications. Physician personal banking assistant, Jen Yoa PA-C, required for surgery; including patient positioning, draping, tissue retraction, maintaining instrument position, hip dislocation/ relocation, wound closure, and dressing placement. Implants The Accolade II hip stem, 127 degree size 3 , was utilized with excellent press-fit. The 48 mm Trident II acetabular component was impacted with excellent press-fit stability. The +2.5 , 36 mm Biolox ceramic femoral head was utilized. Estimated Blood Loss -200.0 Drains No Packing No Pathology None sent Complications No immediate complications Condition Stable Disposition PACU [facility] Billing Surgery - Charge Forward: Surgery Billing
[2022-05-21] MEDS: ONDANSETRON INJ 4 MG/2 ML VIAL IV PUSH (15:07)
[2022-05-21] MEDS: SENNA/DOCUSATE SODIUM TABLET 2 TAB PO (16:27)
[2022-05-21] MEDS: ASPIRIN 81 MG ENTERIC TABLET PO (16:30)
[2022-05-21] MEDS: MELOXICAM 7.5 MG TABLET PO (16:30)
[2022-05-21] MEDS: FAMOTIDINE 20 MG TABLET PO (23:19)
[2022-05-22 00:39] VITALS: BP 111/48; PULSE 83; RESP 20; TEMP 36; O2SAT 99
[2022-05-22 03:51] VITALS: BP 129/52; PULSE 78; RESP 20; TEMP 36.9; O2SAT 95
[2022-05-22] MEDS: ceFAZolin 2 GM/D5W 50 ML 2 GM/50 ML BAG IVPB (06:11)
[2022-05-22 08:00] VITALS: O2SAT 100
[2022-05-22] MEDS: predniSONE 5 MG TABLET PO (08:06)
[2022-05-22] MEDS: ASPIRIN 81 MG ENTERIC TABLET PO (08:07)
[2022-05-22] MEDS: amLODIPine BESYLATE 5 MG TABLET PO (08:07)
[2022-05-22] MEDS: hydroCHLOROthiazide 25 MG TABLET PO (08:07)
[2022-05-22] MEDS: FAMOTIDINE 20 MG TABLET PO (08:07)
[2022-05-22] MEDS: VALSARTAN 160 MG TABLET PO (08:07)
[2022-05-22] MEDS: SENNA/DOCUSATE SODIUM TABLET 2 TAB PO (08:07)
[2022-05-22] MEDS: MELOXICAM 7.5 MG TABLET PO (08:07)
[2022-05-22 08:08] VITALS: BP 129/54; PULSE 85; O2SAT 100
[2022-05-22] MEDS: polyethylene glycoL 3350 17 GM POWD.PACK PO (08:08)
--- NOTE | 2022-05-22 08:37 | P.DS_ITS ---
DS: Admitting Diagnosis Discharge Date 05/22/22 Admitting Diagnosis OA Right hip DS: Discharge Diagnosis Discharge Diagnosis (1) Status post total hip replacement, right: Code(s): Z96.641 - Presence of right artificial hip joint Status: Acute Assessment and Plan: Postop day 1: Right total Hip arthroplasty. Patient tolerated procedure well. No complications. Pain manageable with pain medication. No numbness or tingling. We had a lengthy discussion regarding postoperative wound care, limitations, expectations, and exercises. Patient shows good understanding. She has had initial physical therapy and is tolerating it well. DVT prophylaxis: 81 mg baby aspirin b.i.d. for 14 days. Pain medication: Percocet. Meloxicam. Patient has followup appointment with Dr. Castro in 3 weeks. DS: Summary Hospital Course Reason for hospitalization: Total hip arthroplasty Hospital Course: Patient tolerated procedure well. Has had initial PT/OT and made good progress. Status at Discharge Functional status at discharge: uses cane/walker Overall status at discharge: patient is progressing back to baseline Time Spent with Patient Time attestation: Total time spent providing and/or coordinating discharge services: Exam Narrative: Overweight 52 y/o female. Resting comfortably in bed. Wearing compression socks bilaterally. Dressing dry and intact with no drainage. Moderate swelling. No ecchymosis. No erythema. No hematoma. Range of motion limited due to pain. Calf nontender. Thigh nontender. Neurologic status intact. No varicosities. Distal pulses palpable. Discharge Plan Discharge Patient Disposition: Home, Self-Care Discharge Instructions: See green instruction sheets Stand Alone Forms: General Discharge Instructions Follow-up/Referrals: Jen Yao PA [Physician Solar Electric/Photovoltaic Installer] - Discharge Medications: New meloxicam 15 mg tablet 15 mg PO DAILY Qty: 30 0RF Rx Instructions: Cut in half. Take 1/2 in morning and 1/2 at night. Take with food. Stop if stomach upset. aspirin 81 mg tablet,delayed release (DR/EC) 81 mg PO BID 14 Days Qty: 28 0RF prednisone 5 mg tablet 5 mg PO DAILY 21 Days Qty: 21 0RF oxycodone-acetaminophen 5-325 mg tablet 1 - 2 tablet PO Q4-6H MDD 6 PRN (Reason: pain) Qty: 30 0RF Continued multivitamin Tablet 1 tablet PO DAILY amlodipine 5 mg tablet 5 mg PO QAM valsartan 160 mg tablet 160 mg PO QAM hydrochlorothiazide 25 mg tablet 25 mg PO QAM Qty: 90 3RF Held aspirin 81 mg tablet,delayed release (DR/EC) 81 mg PO HS Hold Instructions: Resume on 06/05/22. Take twice a day for 2 weeks then resume 1 a day dose.
--- NOTE | 2022-05-22 09:16 | WPDANESPN ---
Anes - Prog Note Post-Op Date/Time: 05/22/22 09:16 Vital Signs: Last Vital Signs Temp 36.9 C 05/22/22 03:51 Pulse 85 05/22/22 08:08 Resp 20 05/22/22 03:51 BP 129/54 L 05/22/22 08:08 Pulse Ox 100 05/22/22 08:08 O2 Del Method Room Air 05/21/22 20:00 O2 Flow Rate 2 05/21/22 12:10 Pain Score (VAS): 0 I/O: Intake & Output 05/21/22 05/22/22 05/22/22 23:59 07:59 15:59 Intake Total 1550 440 240 Output Total 145 Balance 1405 440 240 Patient Feedback: Patient satisfied with anesthetic care.
[2022-05-22 10:37] VITALS: O2SAT 99
== END 2022-05-22 10:55 | disposition home or self-care (01) ==
LOC: ANHSURGERY 05:59 → ANH2MED 11:34
PROVIDERS: PCP Family Medicine; Visit Provider Orthopaedic Surgery
PROC: (CPT 27130; principal; 2022-05-21 07:30)
DX: M16.11 Unilateral primary osteoarthritis, right hip (principal); I10 Essential (primary) hypertension; E78.5 Hyperlipidemia, unspecified; M81.0 Age-related osteoporosis without current pathological fracture; E66.9 Obesity, unspecified; Z68.32 Body mass index [BMI] 32.0-32.9, adult; Z79.82 Long term (current) use of aspirin
CPT/HCPCS: 27130; 36415; 73502; 86850; 86900; 86901; 97110; 97116; 97161; 97165; 97530; 97535; A9270; C1713; C1776; J0131; J0171; J0690; J1100; J1170; J1885; J2250; J2270; J2405; J2704; J2710; J2795; J3010; J7030; J7120; J7512

== ENCOUNTER 2024-10-19 08:54 | Outpatient (CLI) | payer MEDICARE, SELFPAY ==
--- NOTE | ~2024-10-19 | DEXA_ITS ---
Bone Density Report Name: LINDA NUNEZ Age: 74 Sex: Female Ethnicity: White Date of : 1950 Indication: postmenopausal; screening for osteoporosis; height loss; hysterectomy; Referring Provider: SVETLANA SALCEDO Study: Bone densitometry was performed. Exam Date: October 19, 2024 Accession number: [id number] Bone Density: Region BMD T-score Z-score Classification AP Spine(L1-L4) 1.176 1.2 3.4 Normal World Health Organization criteria for BMD impression classify patients as: Normal (T-score at or above -1.0), Osteopenia (T-score between -1.0 and -2.5), or Osteoporosis (T-score at or below -2.5). Previous Exams: Region Exam Age BMD T-score BMD Change BMD Change Date g/cm2 vs Baseline vs Previous AP Spine (L1-L4) 10/19/2024 74 1.176 1.2 0.082 (7.5%)# 0.082 (7.5%)# 12/02/2017 67 1.095 0.4 *Denotes significance at 95% confidence level, LSC for AP Spine = 0.022 g/cm2 # Denotes dissimilar scan types or analysis methods Clinical Information Provided by Patient: Has used the following medications: Vitamin D, Calcium Has the following medical conditions: Hysterectomy Patient maximum height was 65 Menopause Age: 52 No regular weight bearing exercise Drinks caffeinated beverages Onset of menses at age 14 Number of children 2 Impression: The patient has normal bone mass. No significant bone loss was observed. Discussion: LOW RISK OF FRACTURE; BONE DENSITY IS WELL ABOVE THE MINIMUM DESIRABLE LEVEL AND ABOVE AVERAGE FOR AGE AND SEX AT ALL SKELETAL SITES TESTED. This person's bone density is above expected limits for age and sex. This is rarely clinically significant, but should be pursued if there are significant musculoskeletal complaints. The patient should follow a healthful lifestyle (good nutrition with adequate calcium and vitamin D, and appropriate weight-bearing exercise). Follow-Up: Consider repeating this study in 5 years or sooner if there is some new clinical indication. Reported by: REGIS on 10/19/2024 9:23:00 AM. Reviewed, dictated and finalized at location A.
--- NOTE | ~2024-10-19 | MM_ITS ---
EXAMINATION: MM screening matt BI w basia HISTORY: Screening TECHNIQUE: Craniocaudal and mediolateral oblique 3-D tomosynthesis images were obtained and synthetic 2-D images were generated. CAD analysis was submitted and interpreted. COMPARISON: 02/20/2022 and 09/30/2017 BREAST PARENCHYMAL COMPOSITION: There are scattered areas of fibroglandular density. FINDINGS: Bulky calcifications detected bilaterally, stable and benign in appearance. Stable parenchymal pattern without suspicious microcalcifications, architectural distortion, discrete masses or significant asymmetry. IMPRESSION: 1. No mammographic evidence of malignancy. 2. Recommend routine screening mammography in one year. BI-RADS Category 2: Benign finding(s). Reviewed, dictated and finalized at location A. SCHOOL LIBRARY MEDIA SPECIALIST
--- OUTSIDE RECORDS SUMMARY | 2024-10-26 10:25 | XMS_ITS | Encounter Summary ---
Author Organization [facility] Address [address] [place] [address] Care Team Providers Care Gas Engine Operator Name Role Phone Alexis Hillman MD Primary Care Provider [phone] Reason for Visit * Reason Comments Imm Inj Encounter Details Date Type Department Care Team (Late st Contact Info) Description 08/04/2018 7:00 PM CDT Office Visit [facility] AT [address] [phone] Provider, [facility] Need for vaccination (Primary Dx) Social History Tobacco Use Types Packs/Day Years Used Date Smoking Tobacco: Never Assessed Sex and Gender Information Value Date Recorded Sex Assigned at Not on file Gender Identity Not on file Sexual Orientation Not on file documented as of this encounter Patient Instructions * Patient Instructions* Rosa Cervantes - 08/04/2018 11:22 AM CDT Images from the original note were not included. Influenza Vaccine PARTS TECHNICIAN: The influenza vaccine is an injection given to help prevent influenza (flu). The flu is caused by avirus. The virus spreads from person to person through coughing and sneezing. Several types of viruses cause the flu. The viruses change agent time, so new vaccines are made each year. The vaccine begins to protect you about 2 weeks after you get it. The flu vaccine is usually injected into the upper arm. It may be given in your thigh. You may get a vaccine with a weak or virus. Call 911 for any of the following: ?? Your mouth and throat are swollen. ?? You are wheezing or have trouble breathing. ?? You have chest pain or your heart is beating faster than normal for you. ?? You feel like you are going to faint. Seek care immediately if: ?? Your face is red or swollen. ?? You have hives that spread over your body. ?? You feel weak or dizzy. Contact your healthcare provider if: ?? You have increased pain, redness, or swelling around the area where the shot was given. ?? You have questions or concerns about the influenza vaccine. When to get the flu vaccine: The vaccine is offered every year starting in early fall. Get the vaccine as soon as it is available. Children 6 months through 8 years old need 2 doses during the first year they get the vaccine. The 2 doses should be given at least 4 weeks apart. It is best if the same type of vaccine is given both times. The child can then receive 1 dose each year. Children 9 yearsor older should get 1 dose each year. Who should get the flu vaccine: ?? Infants 6 months or older ?? Any healthy adult who would like to decrease the risk for the flu ?? Anyone living with or caring for children younger than 5 years ?? Healthcare workers ?? Anyone who lives in a long-term care facility ?? Anyone who has chronic health problems, such as asthma, diabetes, or blood disorders ?? Anyone who has a weak immune system ?? Women who are or will be during the flu season Who should not get the flu vaccine or should wait to get it: Anyone who is sick or has a fever should wait until he or she is well before getting the vaccine. The following should not get the vaccine: ?? Infants younger than 6 months ?? Anyone who has had an allergic reaction to the flu vaccine ?? Anyone who received a diagnosis of Guillain-Garnett?? syndrome within 6 weeks of getting a flu vaccine ?? Anyone who is allergic to thimerosal (mercury) Flu vaccine and egg allergies: The flu vaccine may contain a small amount of egg protein. The amount is so low that it is not likely to cause an allergic reaction. Tell your healthcare provider if you have an egg allergy before you get the flu vaccine. Describe all the signs and symptoms of allergic reaction you have had to eggs. Examples include hives, swelling, and trouble breathing. Based on your reaction to eggs, you may need to go to a hospital, clinic, or other facility to get the flu vaccine. Providers need to be able to respond to the rare risk that you have a severe allergic reaction. Egg-free vaccines may be available, but do not delay getting a flu vaccine to wait for it. Risks of the flu vaccine: The flu vaccine may cause mild symptoms, such as a fever, headache, and muscle aches. It may also cause mild to moderate soreness or redness at the area where you were giventhe injection. You may still get the flu after you receive the flu vaccine. You may have an allergic reaction to the vaccine. This can be life-threatening. Follow up with your healthcare provider as directed: Write down your questions so you remember to ask them during your visits. ?? Copyright [employer] 2018 Information is for End User's use only and may not be sold, redistributed or otherwise used for commercial purposes. All illustrations and images included in CareNotes?? are the copyrighted property of [employer] or [employer] The above information is an director educational radio only. It is not intended as medical advice for individual conditions or treatments. Talk to your doctor, nurse or pharmacist before following any medical regimen to see if it is safe and effective for you. documented in this encounter Progress Notes * Rosa Cervantes - 08/04/2018 11:22 AM CDT Kade Ramos is a .68 y.o. .female patient, here for: Chief Complaint Patient presents with ??? Imm Inj Orders Placed This Encounter ??? FLU VACCINE TRI INC ANTIG PF Patient tolerated without difficulty. Hemostasis achieved, and sterile band-aid placed. Immunization questionnaire scanned into the medical record. -Advised patient to keep a record of all vaccinations. (may use [facility] MyChart if desired) -May take Tylenol (acetaminophen) as needed for aches/pains per package directions. -If you develop redness, swelling at the injection site; it should resolve on its own within 5-7 days of injection. Use warm compresses as needed to the site. -Return to clinic for an evaluation if needed. -Current CDC VIS Handout given Follow-up with your Alexis Hillman MD as directed. If no PCP listed, referral offered. .Rosa Cervantes 08/04/2018 11:22 AM documented in this encounter Plan of Treatment Not on file documented as of this encounter Visit Diagnoses Diagnosis Need for vaccination- Primary Need for prophylactic vaccination and inoculation against unspecified single disease documented in this encounter Care Teams Gas Engine Operator Relationship Specialty Start Date End Date Alexis Hillman MD [address] [place] [id number] PCP - General Family Medicine 08/04/18 documented as of this encounter
--- OUTSIDE RECORDS SUMMARY | 2024-10-26 10:25 | XMS_ITS | Encounter Summary ---
Author Organization [facility] Address [address] [place] [address] Care Team Providers Care Lace Paper Machine Operator Name Role Phone Alexis Hillman MD Primary Care Provider [phone] Reason for Visit * Reason Comments Imm Inj Encounter Details Date Type Department Care Team (Late st Contact Info) Description 07/27/2020 2:40 PM CDT Office Visit [facility] AT [address] [phone] Need for vaccination (Primary Dx) Social History Tobacco Use Types Packs/Day Years Used Date Smoking Tobacco: Never Assessed Sex and Gender Information Value Date Recorded Sex Assigned at Not on file Gender Identity Not on file Sexual Orientation Not on file documented as of this encounter Progress Notes * Chao Alcaraz APRN-CNP - 07/27/2020 2:35 PM CDT Patient tolerated without difficulty. Hemostasis achieved, and sterile band-aid placed. ?? Immunization questionnaire scanned into the medical record. -Advised patient to keep a record of all vaccinations. (may use [facility] MyChart if desired) -May take Tylenol (acetaminophen) as needed for aches/pains per package directions. -If you develop redness, swelling at the injection site; it should resolve on its own within 5-7 days of injection. Use warm compresses as needed to the site. -Return to clinic for an evaluation if needed. -Current [facility] VIS Handout given ?? documented in this encounter Plan of Treatment Not on file documented as of this encounter Visit Diagnoses Diagnosis Need for vaccination- Primary Need for prophylactic vaccination and inoculation against unspecified single disease documented in this encounter Care Teams Lace Paper Machine Operator Relationship Specialty Start Date End Date Alexis Hillman MD [address] [place] [address] PCP - General Family Medicine 08/04/18 documented as of this encounter
--- OUTSIDE RECORDS SUMMARY | 2024-10-26 10:25 | XMS_ITS | Referral Summary ---
Author Organization [facility] Address [address] [place] [address] Care Team Providers Care Telehealth Nurse Educator Name Role Phone Alexsi Hillman MD Primary Care Provider [phone] Source Comments [facility],non-[facility] Affiliates and Associated Physician Practices is amultiple site organization consisting of ambulatory clinics and hospital sitesin [place], [place], [place] and [place]. This disclosure is being madepursuant to the Care Everywhere program and may not contain all information available regarding this patient. Last updated 18.[facility] Allergies Active Allergy Reactions Criticality Noted Date Comments Penicillins Rash Medium 08/04/2018 Medications Be aware that medications may not be up to date on this document. Always verify current medications with the patient. No known medications Immunizations Name Administration Dates Next Due INFLUENZA VACCINE, HIGH-DOSE , QUADR. (FLUZONE HIGH-DOSE QUADRIVALENT; 65Y+), 0.7 ML (HD-IIV4) 07/27/2020,08/04/2018 INFLUENZA VACCINE, QUADR. (F LUZONE; FLULAVAL; FLUARIX; AFLURIA QUADRIVALENT; 6MO+), 0.5 ML (IIV4) 07/02/2019 Social History Tobacco Use Types Packs/Day Years Used Date Smoking Tobacco: Never Assessed Sex and Gender Information Value Date Recorded Sex Assigned at Not on file Gender Identity Not on file Sexual Orientation Not on file Plan of Treatment Not on file Care Teams Telehealth Nurse Educator Relationship Specialty Start Date End Date Alexis Hillman MD [address] [place] [address] PCP - General Family Medicine 08/04/18
--- OUTSIDE RECORDS SUMMARY | 2024-10-26 10:25 | XMS_ITS | Encounter Summary ---
Author Organization [facility] Address [address] [place] [address] Care Team Providers Care Ship Rigger Name Role Phone Unavailable Primary Care Provider Unavailabl e Reason for Visit * Reason Comments Medication Refill Encounter Details Date Type Department Care Team (Late st Contact Info) Description 09/03/2022 Refill [facility] [place] [address] [place] [address] Gela Talavera, DAIRY LABORATORY TECHNICIAN [facility] [place] [address] Social History Tobacco Use Types Packs/Day Years Used Date Smoking Tobacco: Never Assessed Sex and Gender Information Value Date Recorded Sex Assigned at Not on file Gender Identity Not on file Sexual Orientation Not on file documented as of this encounter Plan of Treatment Not on file documented as of this encounter Visit Diagnoses Not on filedocumented in this encounter
--- OUTSIDE RECORDS SUMMARY | 2024-10-26 10:25 | XMS_ITS | Encounter Summary ---
Author Organization [facility] Address [address] [facility] [place] [address] Care Team Providers Care Machine Shop Helper Name Role Phone Alexis Hillman MD Primary Care Provider [phone] Reason for Visit * Reason Comments Imm Inj Encounter Details Date Type Department Care Team (Late st Contact Info) Description 07/02/2019 7:00 PM CDT Office Visit [facility] [address] [id number] Provider, [facility] Need for vaccination (Primary Dx) Social History Tobacco Use Types Packs/Day Years Used Date Smoking Tobacco: Never Assessed Sex and Gender Information Value Date Recorded Sex Assigned at Not on file Gender Identity Not on file Sexual Orientation Not on file documented as of this encounter Progress Notes * Monica Shields APRN-CNP - 07/02/2019 6:39 PM CDT Kade is here for her Flu vaccine documented in this encounter Plan of Treatment Not on file documented as of this encounter Visit Diagnoses Diagnosis Need for vaccination- Primary Need for prophylactic vaccination and inoculation against unspecified single disease documented in this encounter Care Teams Machine Shop Helper Relationship Specialty Start Date End Date Alexis Hillman MD [address] [place] [address] PCP - General Family Medicine 08/04/18 documented as of this encounter
--- OUTSIDE RECORDS SUMMARY | 2024-10-26 10:25 | XMS_ITS | Encounter Summary ---
Author Organization [facility] Address [address] [place] [address] Care Team Providers Care Hat Marker Name Role Phone Unavailable Primary Care Provider Unavailabl e Reason for Visit * Reason Comments Medication Refill Encounter Details Date Type Department Care Team (Late st Contact Info) Description 04/08/2022 Refill [facility] [place] [address] [place] [address] Alexis Hillman MD [address] [facility] [address] [place] [address] Social History Tobacco Use Types Packs/Day Years [...]
--- OUTSIDE RECORDS SUMMARY | 2024-10-26 10:25 | XMS_ITS | Encounter Summary ---
Author Organization [facility] Address [address] [place] [address] Care Team Providers Care Sap Mobility Architect Name Role Phone Unavailable Primary Care Provider Unavailabl e Reason for Visit * Reason Comments Medication Refill Encounter Details Date Type Department Care Team (Late st Contact Info) Description 06/05/2022 Refill [facility] [place] [address] [place] [address] Alexis Hillman MD [address] [facility] [address] [place] [address] Social History Tobacco Use Types [...]
--- OUTSIDE RECORDS SUMMARY | 2024-10-26 10:25 | XMS_ITS | Clinical Summary ---
Author Organization [facility] Address [address] [facility] Attn: Epic Prelude ADT [place] [address] Care Team Providers Care Building Maintenance Technician Name Role Phone Unavailable Primary Care Provider Unavailabl e Medications Medication Sig Dispensed Refills Start Date End Date Status hydroCHLOROthiazide 25 mg tablet Take 1 Tablet (25 mg) by mouth daily in the morning. 90 Tablet 3 04/08/2022 Active meloxicam (MOBIC) 15 mg tablet Take 1/2 tablet by mouth in the morning and 1/2 tablet by mouth at night. Take with food, and stop if stomach upset occurs. 30 Tablet 05/22/2022 Active oxyCODONE-acetaminoph en (PERCOCET) 5-325 mg tablet Take 1-2 tablets by mouth every 4-6 hours as needed for pain. Max daily dose of 6 tablets. 30 Tablet 05/22/2022 Active predniSONE (DELTASONE) 5 mg tablet Take 1 Tablet (5 mg) by mouth daily for 3 weeks. 21 Tablet 05/22/2022 Active Social History Tobacco Use Types Packs/Day Years Used Date Smoking Tobacco: Never Assessed Sex and Gender Information Value Date Recorded Sex Assigned at Not on file Gender Identity Not on file Sexual Orientation Not on file Plan of Treatment Health Maintenance Due Date Last Done Comments DTAP/TDAP/TD VACCINES (1 - Tdap) 1971 BREAST CANCER SCREENING 1992 COLORECTAL SCREENING 1997 Colorectal Cancer Screening 1997 FIT-DNA Q 3 years 1997 FIT/FOBT Q 1 year 1997 Flex Sig/CT Colonography Q 5 years 1997 ZOSTER VACCINE (1 of 2) 2002 OSTEOPOROSIS SCREENING 2017 PNEUMOCOCCAL VACCINE 65+ YEARS (1 of 1 - PCV) 03/22/20 17 INFLUENZA VACCINE (#1) 2024 RSV VACCINE (60+ or ) (1 - 1-dose 75+ series) 2027
--- OUTSIDE RECORDS SUMMARY | 2024-10-26 10:25 | XMS_ITS | Patient Health Summary ---
Author Organization [facility] Address [address] [facility] [place] [address] Care Team Providers Care Review Nurse Name Role Phone Alexis Hillman MD Primary Care Provider [phone] Note from [facility],non-owned Affiliates and Associated Physician Practices is amultiple site organization consisting of ambulatory clinics and hospital sitesin [place], [place], [place] and [place]. This disclosure is being madepursuant to the Care Everywhere program and may not contain all information available regarding this patient. Last updated 18.[facility] Allergies * Penicillins(Rash) -Medium Criticality Medications Be aware that medications may not be up to date on this document. Always verify current medications with the patient. No known medications Immunizations * INFLUENZA VACCINE, HIGH-DOSE, QUADR. (FLUZONE HIGH-DOSE QUADRIVALENT; 65Y+), 0.7 ML (HD-IIV4)(Given 07/27/2020, 08/04/2018) * INFLUENZA VACCINE, QUADR. (FLUZONE; FLULAVAL; FLUARIX; AFLURIA QUADRIVALENT; 6MO+), 0.5 ML (IIV4)(Given 07/02/2019) Social History Tobacco Use Types Packs/Day Years Used Date Smoking Tobacco: Never Assessed Sex and Gender Information Value Date Recorded Sex Assigned at Not on file Gender Identity Not on file Sexual Orientation Not on file Care Teams Review Nurse Relationship Specialty Start Date End Date Alexis Hillman MD [address] [place] [address] PCP - General Family Medicine 08/04/18
--- OUTSIDE RECORDS SUMMARY | 2024-10-26 10:25 | XMS_ITS | Clinical Summary ---
Author Organization [facility] Address [address] [place] [address] Care Team Providers Care Circuit Rider Name Role Phone Alexis Hillman MD Primary Care Provider [phone] Source Comments [facility],non-[facility] Affiliates and Associated Physician Practices is amultiple site organization consisting of ambulatory clinics and hospital sitesin [place], [place], [place] and [place]. This disclosure is being madepursuant to the Care Everywhere program and may not contain all information available regarding this patient. Last updated 18.[facility] Allergies Active Allergy Reactions Criticality Noted [...] Health Maintenance Due Date Last Done Comments BONE DENSITY TESTING 1952 COLOGUARD (AGES 45-75) - COL ON CA SCREENING 1952 COLON MONITORING 1952 COLONOSCOPY - COLON CA SCREENING 1952 CT COLONOGRAPHY - COLON CA SCREENING 1952 Colorectal Cancer Screening 1952 FIT - COLON CA SCREENING 1952 FLEX SIG - COLON CA SCREENING 1952 LIPID TESTING 1952 MAMMOGRAM 1950 MEDICARE AWV ? 12 MONTHS 1952 HEPATITIS C SCREENING 03/18/1970 DTAP/TDAP/TD VACCINES (1 - Tdap) 1971 ZOSTER VACCINE (1 of 2) 2002 PNEUMOCOCCAL VACCINE 65+ (1 of 1 - PCV) 2017 DEPRESSION SCREENING 10/27/2023 COVID-19 VACCINE (1 - 2023-2 5 season) 2024 INFLUENZA VACCINE (#1) 2024 0, 07/02/2019, 08/04/2018 Respiratory Syncytial Virus (RSV) Vaccine Pt: or over 60 yrs (1 - 1-dose 75+ series) 2027 HEPATITIS B VACCINE Aged Out No longe r eligible based on patient's age to complete this topic HIB VACCINE Aged Out No longer eligi ble based on patient's age to complete this topic HPV VACCINE Aged Out No longer eligi ble based on patient's age to complete this topic MENINGOCOCCAL VACCINE Aged Out No chiquita luciano eligible based on patient's age to complete this topic Care Teams Circuit Rider Relationship Specialty Start Date End Date Alexis Hillman MD [address] [place] [address] PCP - General Family Medicine 08/04/18
--- OUTSIDE RECORDS SUMMARY | 2024-10-26 10:25 | XMS_ITS | Encounter Summary ---
Author Organization [facility] Address [address] [facility] [place] [address] Care Team Providers Care Finance Executive Name Role Phone Alexis Hillman MD Primary Care Provider Encounter Details Date Type Department Care Team (Late st Contact Info) Description 01/22/2021 Orders Only [facility] [address] [place] [address] Dexter Sutton MD [address] [facility] [address] [place] [address] Need for vaccination Social History Tobacco Use Types Packs/Day Years Used Date Smoking Tobacco: Never Assessed Sex and Gender Information Value Date Recorded Sex Assigned at Not on file Gender Identity Not on file Sexual Orientation Not on file documented as of this encounter Plan of Treatment Not on file documented as of this encounter Visit Diagnoses Diagnosis Need for vaccination Need for prophylactic vaccination and inoculation against unspecified single disease documented in this encounter Care Teams Finance Executive Relationship Specialty Start Date End Date Alexis Hillman MD [address] [place] [address] PCP - General Family Medicine 08/04/18 documented as of this encounter
== END 2024-10-19 08:55 | disposition home or self-care (01) ==
LOC: ANHIMG 08:56
PROVIDERS: PCP Family Medicine; Visit Provider Family Medicine
DX: Z12.31 Encounter for screening mammogram for malignant neoplasm of breast (principal); Z78.0 Asymptomatic menopausal state
CPT/HCPCS: 77063; 77067; 77080